=== PATIENT | male | born 1935 | race Caucasian/White ===

== ENCOUNTER 2017-06-14 16:54 | Emergency (ER) | payer OTHER, MEDICARE, BC ==
[~2017-06-14] VITALS: Ht 162.6 cm; Wt 60.0 kg
[~2017-06-14 16:54] MED LIST: ASPIRIN325 MG PO; BENADRYL 50MG C50 MG PO; CHILD ASA LS81 MG PO; CIPRO XR500 M2 PO; CO Q-10200 M1 PO; COUMADIN3 MG PO; DIGOXIN0.125 MG PO; FLEXERIL PO; METO50TA52 PO; MEVACOR20 MG PO; NITROSTAT0.4 MG SL; OCUVITE EYE HEALTH F PO; PERCOCET 10/31 COMBO PO; PRILOSEC40 MG PO; ZESTRIL10 MG PO; [UNRECOGNIZED DRUG - OTHER] PO
[2017-06-14 17:48] LABS: HEMATOCRIT 41.1 % (39.0-50.0); HEMOGLOBIN 13.3 g/dl (14.0-18.0); IMMATURE GRANULOCYTES 0.5 % (0.0-1.0); MEAN CELL VOLUME 96.7 fL CALC (80.0-100.0); MEAN CORPUSCULAR HGB 31.3 pG CALC (26.0-32.0); MEAN CORPUSCULAR HGB CONC 32.4 g/L CALC (32.0-36.0); NEUT# 6.96 thou/uL (1.82-7.42); RED BLOOD COUNT 4.25 mill/uL (4.70-6.10); RED CELL DISTRI WIDTH 13.2 % (11.5-15.5)
[2017-06-14 18:09] LABS: ALBUMIN 3.8 g/dL (3.2-5.0); ALKALINE PHOSPHATASE 74 u/l (38-126); ANION GAP 15 (6-22 (CALC)); BILIRUBIN, TOTAL 0.7 mg/dL (0.0-1.4); BUN 34 mg/dL (8-23); BUN/CREATININE RATIO 39 (12-20 (CALC)); CALCIUM 8.7 mg/dL (8.4-10.2); CARBON DIOXIDE 27 mmol/l (22-30); CHLORIDE 105 mmol/l (95-108); CREATININE 0.9 mg/dL (0.7-1.3); GFR > 60 ML/MIN (>=60 (CALC)); GFR FOR AFR.AMER. > 60 ML/MIN (>=60 (CALC)); GLUCOSE 117 mg/dL (82-115); INTERNATIONAL NORMALIZED RATIO 2.3 RATIO (0.7-1.3); POTASSIUM 3.8 mmol/l (3.5-5.1); SGOT/AST 62 u/l (19-48); SGPT/ALT 39 u/l (11-66); SODIUM 144 mmol/l (137-146); TOTAL PROTEIN 6.8 g/dL (6.3-8.2)
[2017-06-14 18:27] LABS: MYOGLOBIN 543 ng/mL (0 - 121)
[2017-06-14] MEDS ORDERED: METOPROL TAR25 MG PO (19:37)
[2017-06-14] MEDS ORDERED: DONEPEZIL5 MG PO (19:39)
[2017-06-14] MEDS ORDERED: LOSARTAN POT50 MG PO (19:40)
[2017-06-14] MEDS ORDERED: AMLODIPINE5 MG PO (19:40)
[2017-06-14 19:45] VITALS: BP 149/74
[2017-06-14 19:45] LABS: URINE BILIRUBIN - DIPSTICK NEGATIVE (NEGATIVE); URINE BLOOD DIPSTICK NEGATIVE (NEGATIVE); URINE COLOR YELLOW; URINE GLUCOSE - DIPSTICK NEGATIVE (NEGATIVE); URINE KETONE NEGATIVE (NEGATIVE); URINE LEUK ESTERASE NEGATIVE (NEGATIVE); URINE NITRITE - DIPSTICK NEGATIVE (Negative); URINE PROTEIN - DIPSTICK NEGATIVE (NEG-TRACE); URINE UROBILINOGEN - DIPSTICK 0.2 E.U./dL (0.2)
[2017-06-14] MEDS ORDERED: EC-NAPROSYN500 MG PO (19:49)
[2017-06-14 20:23] LABS: URINE CLARITY CLEAR
== END 2017-06-14 20:20 | disposition left against medical advice (07) | DRG 552 ==
LOC: ED 16:54
PROVIDERS: Emergency Medicine
DX: S16.1XXA Strain of muscle, fascia and tendon at neck level, initial encounter (principal); S20.219A Contusion of unspecified front wall of thorax, initial encounter; S00.93XA Contusion of unspecified part of head, initial encounter; S80.02XA Contusion of left knee, initial encounter; S80.01XA Contusion of right knee, initial encounter; I10 Essential (primary) hypertension; M25.561 Pain in right knee; V49.49XA Driver injured in collision with other motor vehicles in traffic accident, initial encounter; Y92.411 Interstate highway as the place of occurrence of the external cause; W22.11XA Striking against or struck by driver side automobile airbag, initial encounter; Y93.89 Activity, other specified; M25.562 Pain in left knee; R07.9 Chest pain, unspecified; R06.02 Shortness of breath; I25.10 Atherosclerotic heart disease of native coronary artery without angina pectoris; Z95.5 Presence of coronary angioplasty implant and graft; Z91.19 Patient's noncompliance with other medical treatment and regimen

== ENCOUNTER 2020-02-24 08:53 | Inpatient (IN) | payer MEDICARE, BC ==
[~2020-02-24] VITALS: Ht 162.6 cm; Wt 68.0 kg
[~2020-02-24 08:53] MED LIST changes: +AMLODIPINE5 MG PO; +DONEPEZIL5 MG PO; +EC-NAPROSYN500 MG PO; +LOSARTAN POT50 MG PO; +METOPROL TAR25 MG PO
[2020-02-24] MEDS ORDERED: DIGOXIN0.125 MG PO (09:15)
[2020-02-24] MEDS ORDERED: LOVASTATIN20 M1 PO (09:19)
[2020-02-24] MEDS ORDERED: NAMENDA10 MG PO (09:23)
[2020-02-24 09:34] LABS: HEMATOCRIT 43.8 % (39.0-50.0); HEMOGLOBIN 13.7 g/dl (14.0-18.0); IMMATURE GRANULOCYTES 3.2 % (0.0-5.0); MEAN CORPUSCULAR HGB 28.2 pG CALC (26.0-32.0); MEAN CORPUSCULAR HGB CONC 31.3 g/dL CAL (32.0-36.0); PLATELET COUNT 123 thou/uL (130-400); RED BLOOD COUNT 4.86 mill/uL (4.70-6.10); RED CELL DISTRI WIDTH 15.9 % (11.5-15.5)
[2020-02-24] MEDS ORDERED: GNP OMEPRAZOLE20 MG PO (09:34)
[2020-02-24] MEDS ORDERED: WARFARIN2 MG PO (09:35)
[2020-02-24] MEDS ORDERED: WARFARIN4 MG PO (09:36)
[2020-02-24 09:50] LABS: ALBUMIN 3.9 g/dL (3.2-5.0); ALKALINE PHOSPHATASE 88 u/l (38-126); BUN 28 mg/dL (8-23); BUN/CREATININE RATIO 21 (12-20 (CALC)); CARBON DIOXIDE 27 mmol/l (22-30); CHLORIDE 100 mmol/l (95-108); CPK 176 u/l (52-200); CREATININE 1.3 mg/dL (0.7-1.3); GFR 53 ML/MIN (>=60 (CALC)); GFR FOR AFR.AMER. > 60 ML/MIN (>=60 (CALC)); POTASSIUM 3.6 mmol/l (3.5-5.1); SGOT/AST 31 u/l (19-48); TOTAL PROTEIN 7.3 g/dL (6.3-8.2)
[2020-02-24 10:00] LABS: ANION GAP 13 (6-22 (CALC)); BILIRUBIN, TOTAL 2.1 mg/dL (0.0-1.4); SODIUM 136 mmol/l (137-146)
[2020-02-24 10:09] LABS: MEAN CELL VOLUME 90.1 fL CALC (80.0-100.0)
[2020-02-24 10:10] LABS: MANUAL DIFFERENTIAL YES
[2020-02-24 10:21] LABS: BAND 12 % (0-8); PLATELET ESTIMATE SLIGHT DECREASE
[2020-02-24 11:43] LABS: URINE BILIRUBIN - DIPSTICK NEGATIVE (NEGATIVE); URINE BLOOD DIPSTICK LARGE (NEGATIVE); URINE COLOR YELLOW; URINE GLUCOSE - DIPSTICK NEGATIVE (NEGATIVE); URINE KETONE NEGATIVE (NEGATIVE); URINE LEUK ESTERASE TRACE (NEGATIVE); URINE NITRITE - DIPSTICK NEGATIVE (Negative); URINE PH 5.5 (4.5-8.0); URINE PROTEIN - DIPSTICK 30 mg/dL (NEG-TRACE); URINE SPECIFIC GRAVITY >=1.030
[2020-02-24 11:48] LABS: URINE BACTERIA MANY hpf
[2020-02-24 12:13] LABS: INTERNATIONAL NORMALIZED RATIO 1.6 RATIO (0.7-1.3); PROTHROMBIN TIME 15.9 SECONDS (9.0-12.5)
[2020-02-24 14:46] VITALS: BP 117/60
[2020-02-24 16:16] LABS: C-REACTIVE PROTEIN 26.9 mg/dL (0-0.9)
[2020-02-24 18:35] VITALS: BP 115/72
[2020-02-24 18:52] VITALS: BP 116/77
[2020-02-25] VITALS: BP 142/87
[2020-02-25 04:10] VITALS: BP 125/80
[2020-02-25 05:34] LABS: HEMATOCRIT 40.5 % (39.0-50.0); HEMOGLOBIN 12.7 g/dl (14.0-18.0); MEAN CELL VOLUME 90.8 fL CALC (80.0-100.0); MEAN CORPUSCULAR HGB 28.5 pG CALC (26.0-32.0); MEAN CORPUSCULAR HGB CONC 31.4 g/dL CAL (32.0-36.0); NEUT# 17.33 thou/uL (1.82-7.42); RED BLOOD COUNT 4.46 mill/uL (4.70-6.10); RED CELL DISTRI WIDTH 16.8 % (11.5-15.5)
[2020-02-25 05:45] LABS: BILIRUBIN, TOTAL 1.5 mg/dL (0.0-1.4); CREATININE 1.6 mg/dL (0.7-1.3)
[2020-02-25 05:54] LABS: ALBUMIN 2.8 g/dL (3.2-5.0); TOTAL PROTEIN 5.6 g/dL (6.3-8.2)
[2020-02-25 08:20] VITALS: BP 136/82
[2020-02-25 10:55] VITALS: BP 99/66
[2020-02-25 14:18] LABS: INTERNATIONAL NORMALIZED RATIO 1.6 RATIO (0.7-1.3); PROTHROMBIN TIME 15.3 SECONDS (9.0-12.5)
[2020-02-25 14:55] VITALS: BP 96/62
[2020-02-25 19:37] VITALS: BP 118/73
[2020-02-26] VITALS (7 sets, daily range): BP systolic 117–128; BP diastolic 72–89
[2020-02-26 05:30] LABS: HEMATOCRIT 42.6 % (39.0-50.0); HEMOGLOBIN 12.9 g/dl (14.0-18.0); MEAN CELL VOLUME 92.6 fL CALC (80.0-100.0); MEAN CORPUSCULAR HGB CONC 30.3 g/dL CAL (32.0-36.0); RED BLOOD COUNT 4.6 mill/uL (4.70-6.10); RED CELL DISTRI WIDTH 16.4 % (11.5-15.5)
[2020-02-26 05:49] LABS: CREATININE 1.5 mg/dL (0.7-1.3); PROTHROMBIN TIME 19.3 SECONDS (9.0-12.5)
[2020-02-26 06:00] LABS: POTASSIUM 3.1 mmol/l (3.5-5.1)
[2020-02-27 03:47] VITALS: BP 129/83
[2020-02-27 05:50] LABS: ANION GAP 9 (6-22 (CALC)); BUN 21 mg/dL (8-23); BUN/CREATININE RATIO 18 (12-20 (CALC)); CARBON DIOXIDE 26 mmol/l (22-30); CHLORIDE 110 mmol/l (95-108); CREATININE 1.1 mg/dL (0.7-1.3); GFR > 60 ML/MIN (>=60 (CALC)); GFR FOR AFR.AMER. > 60 ML/MIN (>=60 (CALC)); MAGNESIUM 1.7 mg/dL (1.6-2.3); SODIUM 142 mmol/l (137-146)
[2020-02-27 05:58] LABS: INTERNATIONAL NORMALIZED RATIO 2.4 RATIO (0.7-1.3); PROTHROMBIN TIME 23.3 SECONDS (9.0-12.5)
[2020-02-27 06:05] LABS: HEMATOCRIT 39.8 % (39.0-50.0); HEMOGLOBIN 11.9 g/dl (14.0-18.0); MEAN CELL VOLUME 93.2 fL CALC (80.0-100.0); MEAN CORPUSCULAR HGB 27.9 pG CALC (26.0-32.0); MEAN CORPUSCULAR HGB CONC 29.9 g/dL CAL (32.0-36.0); RED BLOOD COUNT 4.27 mill/uL (4.70-6.10); RED CELL DISTRI WIDTH 16.5 % (11.5-15.5)
[2020-02-27 07:09] VITALS: BP 141/78
[2020-02-27 16:15] VITALS: BP 137/91
[2020-02-27 18:53] VITALS: BP 144/85
[2020-02-28 04:15] VITALS: BP 140/87
[2020-02-28 05:30] LABS: HEMATOCRIT 36.7 % (39.0-50.0); HEMOGLOBIN 11.4 g/dl (14.0-18.0); MEAN CELL VOLUME 90.2 fL CALC (80.0-100.0); MEAN CORPUSCULAR HGB CONC 31.1 g/dL CAL (32.0-36.0); RED BLOOD COUNT 4.07 mill/uL (4.70-6.10)
[2020-02-28 05:34] LABS: ANION GAP 7 (6-22 (CALC)); BUN 16 mg/dL (8-23); BUN/CREATININE RATIO 17 (12-20 (CALC)); CARBON DIOXIDE 27 mmol/l (22-30); CHLORIDE 108 mmol/l (95-108); GFR > 60 ML/MIN (>=60 (CALC)); GFR FOR AFR.AMER. > 60 ML/MIN (>=60 (CALC)); POTASSIUM 3.1 mmol/l (3.5-5.1); SODIUM 139 mmol/l (137-146)
[2020-02-28 06:41] LABS: INTERNATIONAL NORMALIZED RATIO 3.7 RATIO (0.7-1.3); PROTHROMBIN TIME 34.6 SECONDS (9.0-12.5)
[2020-02-28 08:00] VITALS: BP 140/87
[2020-02-28 14:57] VITALS: BP 131/88
[2020-02-28 19:00] VITALS: BP 123/81
[2020-02-29 04:00] VITALS: BP 145/97
[2020-02-29 05:19] LABS: HEMATOCRIT 39.7 % (39.0-50.0); HEMOGLOBIN 12.4 g/dl (14.0-18.0); MEAN CELL VOLUME 90.4 fL CALC (80.0-100.0); MEAN CORPUSCULAR HGB 28.2 pG CALC (26.0-32.0); MEAN CORPUSCULAR HGB CONC 31.2 g/dL CAL (32.0-36.0); RED BLOOD COUNT 4.39 mill/uL (4.70-6.10); RED CELL DISTRI WIDTH 15.9 % (11.5-15.5)
[2020-02-29 05:33] LABS: INTERNATIONAL NORMALIZED RATIO 3.6 RATIO (0.7-1.3)
[2020-02-29 05:53] LABS: ANION GAP 8 (6-22 (CALC)); BUN 13 mg/dL (8-23); BUN/CREATININE RATIO 15 (12-20 (CALC)); CARBON DIOXIDE 29 mmol/l (22-30); CHLORIDE 105 mmol/l (95-108); CREATININE 0.9 mg/dL (0.7-1.3); GFR > 60 ML/MIN (>=60 (CALC)); GFR FOR AFR.AMER. > 60 ML/MIN (>=60 (CALC)); POTASSIUM 3.5 mmol/l (3.5-5.1); SODIUM 138 mmol/l (137-146)
[2020-02-29 08:20] VITALS: BP 136/93
[2020-02-29 09:41] VITALS: BP 136/93
[2020-02-29] MEDS ORDERED: MACROBID100 MG PO (10:43)
[2020-02-29] MEDS ORDERED: Levaquin PO (11:13)
== END 2020-02-29 14:25 | DRG 689 ==
LOC: ED 08:53 → ED-I 12:10 → ED 12:17 → ED-I 12:18 → MS2 12:18
PROVIDERS: Internal Medicine; Nurse Practitioner; Student in an Organized Health Care Education/Training Program; ADMIT Internal Medicine; ATTEND Internal Medicine
DX: N30.91 Cystitis, unspecified with hematuria (principal); J18.9 Pneumonia, unspecified organism; Z16.12 Extended spectrum beta lactamase (ESBL) resistance; R19.7 Diarrhea, unspecified; N28.9 Disorder of kidney and ureter, unspecified; E87.6 Hypokalemia; I48.91 Unspecified atrial fibrillation; N40.0 Benign prostatic hyperplasia without lower urinary tract symptoms; I10 Essential (primary) hypertension; F03.90 Unspecified dementia, unspecified severity, without behavioral disturbance, psychotic disturbance, mood disturbance, and anxiety; B96.20 Unspecified Escherichia coli [E. coli] as the cause of diseases classified elsewhere; Z95.5 Presence of coronary angioplasty implant and graft; Z79.01 Long term (current) use of anticoagulants; Z91.81 History of falling; Z20.828 Contact with and (suspected) exposure to other viral communicable diseases
CPT/HCPCS: Q9967

== ENCOUNTER 2021-03-28 18:36 | Emergency (ER) | payer MEDICARE, BC ==
[~2021-03-28] VITALS: Ht 162.6 cm; Wt 77.0 kg
[~2021-03-28 18:36] MED LIST changes: +GNP OMEPRAZOLE20 MG PO; +LOVASTATIN20 M1 PO; +Levaquin PO; +MACROBID100 MG PO; +NAMENDA10 MG PO; +WARFARIN2 MG PO; +WARFARIN4 MG PO
[2021-03-28] MEDS ORDERED: WARFARIN3 MG PO (18:57)
[2021-03-28 19:03] LABS: IMMATURE GRANULOCYTES 0.4 % (0.0-5.0); MEAN CELL VOLUME 91.8 fL CALC (80.0-100.0); MEAN CORPUSCULAR HGB 28.9 pG CALC (26.0-32.0); MEAN CORPUSCULAR HGB CONC 31.5 g/dL CAL (32.0-36.0); NEUT# 4.75 thou/uL (1.82-7.42); RED BLOOD COUNT 5.12 mill/uL (4.70-6.10); RED CELL DISTRI WIDTH 15.2 % (11.5-15.5)
[2021-03-28 19:08] LABS: HEMOGLOBIN 14.8 g/dl (14.0-18.0)
[2021-03-28 19:34] LABS: ALKALINE PHOSPHATASE 102 u/l (38-126); ANION GAP 12 (6-22 (CALC)); BUN 22 mg/dL (8-23); BUN/CREATININE RATIO 17 (12-20 (CALC)); CARBON DIOXIDE 31 mmol/l (22-30); CHLORIDE 100 mmol/l (95-108); CREATININE 1.3 mg/dL (0.7-1.3); GFR 53 ML/MIN (>=60 (CALC)); GFR FOR AFR.AMER. > 60 ML/MIN (>=60 (CALC)); POTASSIUM 4.1 mmol/l (3.5-5.1); SGOT/AST 30 u/l (19-48); SODIUM 138 mmol/l (137-146)
[2021-03-28 19:41] LABS: ALBUMIN 4.2 g/dL (3.2-5.0); BILIRUBIN, TOTAL 0.6 mg/dL (0.0-1.4); TOTAL PROTEIN 7.6 g/dL (6.3-8.2)
[2021-03-28] MEDS ORDERED: CEPHALEXIN500 MG PO (19:53)
[2021-03-28 22:00] VITALS: BP 144/80
== END 2021-03-28 22:00 | disposition home or self-care (01) ==
LOC: ED 18:36
PROVIDERS: Family Medicine
DX: U07.1 COVID-19 (principal); I10 Essential (primary) hypertension; I48.91 Unspecified atrial fibrillation; F03.90 Unspecified dementia, unspecified severity, without behavioral disturbance, psychotic disturbance, mood disturbance, and anxiety; Z95.5 Presence of coronary angioplasty implant and graft

== ENCOUNTER 2021-03-31 14:39 | Emergency (ER) | payer MEDICARE, BC ==
[~2021-03-31] VITALS: Ht 162.6 cm; Wt 68.0 kg
[~2021-03-31 14:39] MED LIST changes: +CEPHALEXIN500 MG PO; +WARFARIN3 MG PO
[2021-03-31 16:10] LABS: HEMATOCRIT 46.5 % (39.0-50.0); HEMOGLOBIN 14.2 g/dl (14.0-18.0); IMMATURE GRANULOCYTES 0.3 % (0.0-5.0); MEAN CELL VOLUME 94.3 fL CALC (80.0-100.0); MEAN CORPUSCULAR HGB 28.8 pG CALC (26.0-32.0); MEAN CORPUSCULAR HGB CONC 30.5 g/dL CAL (32.0-36.0); NEUT# 2.85 thou/uL (1.82-7.42); RED BLOOD COUNT 4.93 mill/uL (4.70-6.10); RED CELL DISTRI WIDTH 15.4 % (11.5-15.5)
[2021-03-31 17:13] VITALS: BP 178/89
== END 2021-03-31 17:24 ==
LOC: ED 14:39
PROVIDERS: Emergency Medicine
DX: R91.8 Other nonspecific abnormal finding of lung field (principal); I71.9 Aortic aneurysm of unspecified site, without rupture; I10 Essential (primary) hypertension; I48.91 Unspecified atrial fibrillation; F03.90 Unspecified dementia, unspecified severity, without behavioral disturbance, psychotic disturbance, mood disturbance, and anxiety; Z95.5 Presence of coronary angioplasty implant and graft; Z86.16 Personal history of COVID-19
CPT/HCPCS: Q9967

== ENCOUNTER 2021-04-05 05:10 | Observation (INO) | payer MEDICARE, BC ==
[~2021-04-05] VITALS: Ht 167.6 cm; Wt 59.0 kg
[2021-04-05 05:59] LABS: HEMATOCRIT 44.8 % (39.0-50.0); HEMOGLOBIN 14.2 g/dl (14.0-18.0); IMMATURE GRANULOCYTES 0.3 % (0.0-5.0); MEAN CELL VOLUME 91.1 fL CALC (80.0-100.0); MEAN CORPUSCULAR HGB 28.9 pG CALC (26.0-32.0); MEAN CORPUSCULAR HGB CONC 31.7 g/dL CAL (32.0-36.0); NEUT# 7.52 thou/uL (1.82-7.42); RED BLOOD COUNT 4.92 mill/uL (4.70-6.10); RED CELL DISTRI WIDTH 15.4 % (11.5-15.5)
[2021-04-05 06:00] LABS: URINE BILIRUBIN - DIPSTICK NEGATIVE (NEGATIVE); URINE BLOOD DIPSTICK MODERATE (NEGATIVE); URINE COLOR YELLOW; URINE GLUCOSE - DIPSTICK NEGATIVE (NEGATIVE); URINE KETONE TRACE mg/dL (NEGATIVE); URINE LEUK ESTERASE NEGATIVE (NEGATIVE); URINE PROTEIN - DIPSTICK 30 mg/dL (NEG-TRACE); URINE SPECIFIC GRAVITY 1.015; URINE UROBILINOGEN - DIPSTICK 0.2 E.U./dL (0.2)
[2021-04-05 06:09] LABS: ALBUMIN 3.6 g/dL (3.2-5.0); ALKALINE PHOSPHATASE 66 u/l (38-126); AMYLASE 89 u/l (30-110); ANION GAP 9 (6-22 (CALC)); BILIRUBIN, TOTAL 0.7 mg/dL (0.0-1.4); BUN 34 mg/dL (8-23); BUN/CREATININE RATIO 29 (12-20 (CALC)); CARBON DIOXIDE 34 mmol/l (22-30); CHLORIDE 99 mmol/l (95-108); CREATININE 1.2 mg/dL (0.7-1.3); GFR 58 ML/MIN (>=60 (CALC)); GFR FOR AFR.AMER. > 60 ML/MIN (>=60 (CALC)); LIPASE 282 u/l (23-300); SODIUM 137 mmol/l (137-146); TOTAL PROTEIN 7.3 g/dL (6.3-8.2)
[2021-04-05 06:20] LABS: SGOT/AST 80 u/l (19-48)
[2021-04-05 06:22] LABS: URINE NITRITE - DIPSTICK NEGATIVE (Negative)
[2021-04-05 06:29] LABS: ACT PARTIAL THROMBO TIME 27.9 SECONDS (20.0-32.5)
[2021-04-05 06:37] LABS: URINE SQUAMOUS EPITHELIAL CELL FEW EPI/hpf (0-FEW); URINE WBC 0-2 WBC/hpf (0-5)
[2021-04-05 06:40] LABS: INTERNATIONAL NORMALIZED RATIO 1.1 RATIO (0.7-1.3); PROTHROMBIN TIME 11.6 SECONDS (9.0-12.5)
--- NOTE | 2021-04-05 07:05 | NUR ---
REPORT RECEIVED FROM JENY DUGGAN.
--- NOTE | 2021-04-05 07:10 | NUR ---
REPORT RECEIVED FROM JENY DUGGAN
[2021-04-05] MEDS ORDERED: METOPROLOL SUCC50 MG PO (07:29)
--- NOTE | 2021-04-05 07:36 | NUR ---
Reassessment of patient completed. No distress noted. NURSING BEDSIDE CURRENTLY
--- NOTE | 2021-04-05 09:00 | NUR ---
PT MEDICATED, VITALS UPDATED, NO DISTRESS NOTED. BED IN LOW POSITION.
--- NOTE | 2021-04-05 11:30 | NUR ---
PT REPOSITIONED IN BED, LINEN CHANGED, NEW BRIEF IN PLACE.
[2021-04-05 13:00] VITALS: BP 112/80
--- NOTE | 2021-04-05 13:00 | NUR ---
PT ATE 25% OF LUNCH, NEEDS ASSISTANCE WITH FEEDING. NO CHANGES.
--- NOTE | 2021-04-05 13:51 | NUR ---
THIS NURSE RECEIVED REPORT FROM RN NOVEMBER AT THIS TIME. PATIENT IS LAYING IN BED WITH EYES CLOTHES AND RESPIRATION EASY AND UNLABORED AT THIS TIME. PATIENT IS ON O2 AT 2 LITERS AND SPO2 IS 94%. SIDERAILS ARE UP CALL LIGHT WITHIN REACH. TELE MONITOR ON AND BEING MONITORED BY ED.
--- NOTE | 2021-04-05 15:45 | NUR ---
PATIENT LAYING IN BED AT THIS TIME. PATIENT DENEIS ANY PAIN LUNG SOUNDS IN UPPER MILES ARE CLEAR AND DIMINISHED IN LOWER MILES. VITAL SIGNS TAKEN AT THIS TIME (SEE INTERVENTIONS). 02 ON AT 2 LITERS AND SPO2 IS CURRENTLY 94% AT THIS TIME. SITTER IS AT BEDSIDE CURRENTLY SIDERRAILS ARE UP CALL LIGHT NEAR.
--- NOTE | 2021-04-05 16:26 | NUR ---
PATIENT INCONTINENT OF LARGE AMOUNT OF URINE AT THIS TIME. PATIENT NICOLE-AREA CLEANSED WITH SOAP AND WATER AT THIS TIME AND DRIED.
[2021-04-05 19:30] VITALS: BP 139/67
--- NOTE | 2021-04-05 20:10 | NUR ---
OBSERVED PT IN THE CAMERA OUT OF HIS BED. UPON ENTERING THE ROOM, PT WAS FOUND STANDING IN A PUDDLE OF URINE NEXT TO THE BED. PT WAS ASSISTED BACK TO THE BED AND CLEANED OF INCONTINENT URINE. NEW GOWN PLACED AND BED ALARM PLACED ON. BED ALARM AND CAMERA IN PLACE ON.
--- NOTE | 2021-04-05 21:13 | NUR ---
PT MEDICATED ORDERS PROVIDE AND ASSESSMENT COMPLETED AT THIS TIME. PT WAS ABLE TO SWOLLOW PILLS WHOLE W/OUT DIFFICULTY. CAMERA MONITOR IS ON AND BED ALARM IS ON ALSO.
[2021-04-05 23:10] VITALS: BP 133/74
--- NOTE | 2021-04-06 03:00 | NUR ---
PT SOUNDED BED ALARM. UPON ENTERING THE ROOM HE WAS FOUND ATTEMPTING TO GET OUT OF THE BED. PT WAS ASSISTED TO BSC, BED WAS WET WITH URINE. BEDDING AND GOWN CHANGED AND BRIEF APPLIED AT THIS TIME. BED ALARM ON, CALL LIGHT AT SIDE, MONITOR IN PLACE AND PT LEFT IN BED WITH LIGHTS LOW.
[2021-04-06 04:00] VITALS: BP 117/78
[2021-04-06 06:45] LABS: HEMATOCRIT 44.6 % (39.0-50.0); HEMOGLOBIN 14.1 g/dl (14.0-18.0); MEAN CELL VOLUME 91.4 fL CALC (80.0-100.0); MEAN CORPUSCULAR HGB 28.9 pG CALC (26.0-32.0); MEAN CORPUSCULAR HGB CONC 31.6 g/dL CAL (32.0-36.0); RED BLOOD COUNT 4.88 mill/uL (4.70-6.10); RED CELL DISTRI WIDTH 15.4 % (11.5-15.5)
--- NOTE | 2021-04-06 07:01 | NUR ---
REPORT FROM LILIANE FERMIN. ASSUMED PT CARE.
[2021-04-06 07:04] LABS: INTERNATIONAL NORMALIZED RATIO 1.2 RATIO (0.7-1.3); PROTHROMBIN TIME 12.6 SECONDS (9.0-12.5)
[2021-04-06 07:06] LABS: ANION GAP 11 (6-22 (CALC)); BUN 21 mg/dL (8-23); BUN/CREATININE RATIO 28 (12-20 (CALC)); CARBON DIOXIDE 28 mmol/l (22-30); CHLORIDE 104 mmol/l (95-108); CREATININE 0.7 mg/dL (0.7-1.3); GFR > 60 ML/MIN (>=60 (CALC)); GFR FOR AFR.AMER. > 60 ML/MIN (>=60 (CALC)); POTASSIUM 4.1 mmol/l (3.5-5.1); SODIUM 138 mmol/l (137-146)
[2021-04-06 08:05] VITALS: BP 126/81
[2021-04-06 10:30] VITALS: BP 114/67
--- NOTE | 2021-04-06 11:41 | NUR ---
PHYSICIAN AT BEDSIDE TO DISCUSS POC.
--- NOTE | 2021-04-06 14:27 | NUR ---
PT note Patient is seen for functional training, He is pleasantly confused but does follow instructions. He is able to get OOB to stand with vitals stable and CGA of 2. He is able to ambualte in room x 40 feet with FWW and vitals stable with short stride length but no LOB. Am Pac score for this patient is 14 indicating he would do well in ECF due to his confusion, incontinence and gait needs. Our plan is to continue to progress his function
[2021-04-06 15:07] VITALS: BP 117/68
--- NOTE | 2021-04-06 15:11 | NUR ---
PT INCONTINENT OF URINE. PERICARE PROVIDED. PT REPOSITIONED IN BED. ON RA. NO APPARENT DISTRESS NOTED. ALERT TO SELF. NO CURRENT WANTS OR NEEDS. CALL LIGHT WITHIN REACH. BED ALARM FOR SAFETY. WILL CONTINUE TO MONITOR.
[2021-04-06 19:00] VITALS: BP 121/72
--- NOTE | 2021-04-06 20:10 | NUR ---
PT SET BED ALARM OFF ATTEMPTING TO USE RESTROOM. PT ASSISTED TO RESTROOM AND BACK TO THE BED.
--- NOTE | 2021-04-06 21:00 | NUR ---
PT MEDICATED ORDERS PROVIDE AND ASSESSMENT COMPLETED AT THIS TIME. I ASSISTED PT TO FIND SOMETHING ON TV TO WATCH AND TURNED VOL UP LOUD FOR [place]. ASSISTED DRINKING FLUIDS AT THIS TIME. BED ALARM IS ON WITH MONITOR FOR OBS.
--- NOTE | 2021-04-06 23:00 | NUR ---
PT SOUNDED BED ALARM, HE WAS ATTEMPTING TO GET OUT OF THE BED TO USE RESTROOM. PT WAS ASSISTED TO THE RESTROOM AND BACK TO THE BED. PT IS VERY UNSTEADY ON HIS FEET. BED ALARM ON AND MONITOR FOR VISUAL OBSERVATIONS.
[2021-04-07] VITALS: BP 116/81
--- NOTE | 2021-04-07 03:02 | NUR ---
PT SOUNDED THE BED ALARM. PT ASKING TO USE RESTROOM, ASSISTED USING WALKER TO RESTROOM AND BACK TO THE BED. PT OXYGEN SAT AT 95% ON RA AMBULATORY. NO DISTRESS NOTED. NO SOB NOTED. OUTPATIENT PSYCHIATRIST LEFT WITH PT AT THIS TIME. MONITOR IN PLACE FOR OBS FOR SAFETY.
[2021-04-07 04:00] VITALS: BP 132/84
[2021-04-07 06:13] LABS: HEMATOCRIT 44.9 % (39.0-50.0); HEMOGLOBIN 14.1 g/dl (14.0-18.0); IMMATURE GRANULOCYTES 0.2 % (0.0-5.0); MEAN CORPUSCULAR HGB 28.9 pG CALC (26.0-32.0); MEAN CORPUSCULAR HGB CONC 31.4 g/dL CAL (32.0-36.0); NEUT# 2.89 thou/uL (1.82-7.42); RED BLOOD COUNT 4.88 mill/uL (4.70-6.10); RED CELL DISTRI WIDTH 15.2 % (11.5-15.5)
[2021-04-07 07:13] LABS: ALBUMIN 3.1 g/dL (3.2-5.0); ALKALINE PHOSPHATASE 61 u/l (38-126); ANION GAP 11 (6-22 (CALC)); BILIRUBIN, TOTAL 0.7 mg/dL (0.0-1.4); BUN 20 mg/dL (8-23); BUN/CREATININE RATIO 23 (12-20 (CALC)); C-REACTIVE PROTEIN 4.8 mg/dL (0-0.9); CARBON DIOXIDE 29 mmol/l (22-30); CHLORIDE 103 mmol/l (95-108); CREATININE 0.9 mg/dL (0.7-1.3); GFR > 60 ML/MIN (>=60 (CALC)); GFR FOR AFR.AMER. > 60 ML/MIN (>=60 (CALC)); POTASSIUM 4.2 mmol/l (3.5-5.1); SGOT/AST 55 u/l (19-48); SODIUM 139 mmol/l (137-146); TOTAL PROTEIN 6.3 g/dL (6.3-8.2)
--- NOTE | 2021-04-07 07:16 | NUR ---
REPORT FROM LILIANE FERMIN. ASSUMED PT CARE.
[2021-04-07 08:10] VITALS: BP 124/74
--- NOTE | 2021-04-07 11:14 | NUR ---
PHYSICIAN AT BEDSIDE TO DISCUSS POC.
[2021-04-07 11:27] LABS: INTERNATIONAL NORMALIZED RATIO 1.2 RATIO (0.7-1.3); PROTHROMBIN TIME 12.8 SECONDS (9.0-12.5)
[2021-04-07 11:40] VITALS: BP 110/60
--- NOTE | 2021-04-07 14:16 | NUR ---
STANDY BY ASSIST PT INTO BED. PT AMBULATES WITH STEADY GAIT. NO APPARENT DISTRESS NOTED. CALL LIGHT WITHIN REACH. WILL CONTINUE TO MONITOR.
[2021-04-07] MEDS ORDERED: Levaquin PO (14:18)
--- NOTE | 2021-04-07 16:59 | NUR ---
IV site discontinued, cath intact. No edema , no redness, voices no discomfort.
--- NOTE | 2021-04-07 17:01 | NUR ---
Discharge instructions given. Discharged in stable condition via Wheelchair to [facility] with transport. iv site discontinued and telemetry removed.
--- NOTE | 2021-04-07 17:09 | NUR ---
NURSE TO NURSE REPORT TO ALAN AT [facility].
== END 2021-04-07 16:59 ==
LOC: ED 05:10 → ED-I 06:37 → ED 06:56 → ED-I 06:57 → MS2 06:57
PROVIDERS: Nurse Practitioner; ADMIT Hospitalist; ATTEND Hospitalist
DX: U07.1 COVID-19 (principal); J12.82 Pneumonia due to coronavirus disease 2019; R19.5 Other fecal abnormalities; I10 Essential (primary) hypertension; I48.91 Unspecified atrial fibrillation; F03.90 Unspecified dementia, unspecified severity, without behavioral disturbance, psychotic disturbance, mood disturbance, and anxiety; I71.2 Thoracic aortic aneurysm, without rupture; Z95.5 Presence of coronary angioplasty implant and graft; Z79.01 Long term (current) use of anticoagulants
CPT/HCPCS: J0131; Q9967

== ENCOUNTER 2022-01-13 12:42 | Inpatient (IN) | payer MEDICARE, BC ==
[~2022-01-13] VITALS: Ht 167.6 cm; Wt 71.0 kg
[2022-01-13] VITALS (14 sets, daily range): BP systolic 112–151; BP diastolic 46–100
[~2022-01-13 12:42] MED LIST changes: +METOPROLOL SUCC50 MG PO
[2022-01-13 13:18] LABS: HEMATOCRIT 45.9 % (39.0-50.0); HEMOGLOBIN 14.3 g/dl (14.0-18.0); IMMATURE GRANULOCYTES 0.3 % (0.0-5.0); MEAN CELL VOLUME 91.4 fL CALC (80.0-100.0); MEAN CORPUSCULAR HGB 28.5 pG CALC (26.0-32.0); MEAN CORPUSCULAR HGB CONC 31.2 g/dL CAL (32.0-36.0); NEUT# 17.89 thou/uL (1.82-7.42); RED BLOOD COUNT 5.02 mill/uL (4.70-6.10); RED CELL DISTRI WIDTH 15.5 % (11.5-15.5)
[2022-01-13 13:35] LABS: ANION GAP 14 (6-22 (CALC)); BILIRUBIN, TOTAL 0.8 mg/dL (0.0-1.4); BUN 18 mg/dL (8-23); BUN/CREATININE RATIO 17 (12-20 (CALC)); CARBON DIOXIDE 27 mmol/l (22-30); CHLORIDE 103 mmol/l (95-108); GFR FOR AFR.AMER. > 60 ML/MIN (>=60 (CALC)); GFR OTHER RACES > 60 ML/MIN (>=60 (CALC)); LIPASE 122 u/l (23-300); POTASSIUM 4.2 mmol/l (3.5-5.1); SGOT/AST 36 u/l (19-48); SODIUM 140 mmol/l (137-146)
[2022-01-13 13:36] LABS: ALBUMIN 4.1 g/dL (3.2-5.0); ALKALINE PHOSPHATASE 105 u/l (38-126)
[2022-01-13 13:45] LABS: ACT PARTIAL THROMBO TIME 32.8 SECONDS (20.0-32.5)
[2022-01-13 13:53] LABS: INTERNATIONAL NORMALIZED RATIO 3.2 RATIO (0.7-1.3); PROTHROMBIN TIME 31.2 SECONDS (9.0-12.5)
[2022-01-13] MEDS ORDERED: NORVASC5 M1 PO (14:32)
[2022-01-13] MEDS ORDERED: ALLOPURINOL100 MG PO (14:32)
[2022-01-13] MEDS ORDERED: ASPIRIN81 MG PO (14:33)
[2022-01-13] MEDS ORDERED: DIGOXIN0.125 MG PO (14:34)
[2022-01-13] MEDS ORDERED: FUROSEMIDE20 MG PO (14:35)
[2022-01-13] MEDS ORDERED: ARICEPT PO (14:35)
[2022-01-13] MEDS ORDERED: ALTOPREV20 MG PO (14:36)
[2022-01-13] MEDS ORDERED: MEMANTINE HYDRO10 MG PO (14:37)
[2022-01-13] MEDS ORDERED: METOPROL TAR25 MG PO (14:39)
[2022-01-13] MEDS ORDERED: OMEPRAZOLE DR20 MG PO (14:40)
[2022-01-13] MEDS ORDERED: KLOR-CON M1010 MEQ PO (14:42)
[2022-01-13] MEDS ORDERED: WARFARIN3 MG PO (14:43)
[2022-01-13] MEDS ORDERED: PAIN RELIEF650 MG PO (14:44)
[2022-01-13] MEDS ORDERED: WARFARIN SODIUM1 MG PO (14:44)
[2022-01-13] MEDS ORDERED: MILK OF MAG30 ML/UDC PO (14:45)
[2022-01-13 14:48] LABS: URINE BILIRUBIN - DIPSTICK NEGATIVE (NEGATIVE); URINE BLOOD DIPSTICK LARGE (NEGATIVE); URINE COLOR YELLOW; URINE GLUCOSE - DIPSTICK >=1000 mg/dL (NEGATIVE); URINE KETONE NEGATIVE (NEGATIVE); URINE LEUK ESTERASE TRACE (NEGATIVE); URINE NITRITE - DIPSTICK POSITIVE (Negative); URINE PH 6.5 (4.5-8.0); URINE PROTEIN - DIPSTICK NEGATIVE (NEG-TRACE); URINE UROBILINOGEN - DIPSTICK 0.2 E.U./dL (0.2)
[2022-01-13 14:52] LABS: URINE BACTERIA MANY hpf; URINE RBC 25-50 RBC/hpf (0-5)
[2022-01-14 00:20] VITALS: BP 115/71
[2022-01-14 05:51] LABS: HEMATOCRIT 41.6 % (39.0-50.0); HEMOGLOBIN 12.7 g/dl (14.0-18.0); MEAN CELL VOLUME 93.7 fL CALC (80.0-100.0); MEAN CORPUSCULAR HGB 28.6 pG CALC (26.0-32.0); MEAN CORPUSCULAR HGB CONC 30.5 g/dL CAL (32.0-36.0); RED BLOOD COUNT 4.44 mill/uL (4.70-6.10); RED CELL DISTRI WIDTH 15.9 % (11.5-15.5)
[2022-01-14 06:25] LABS: ANION GAP 13 (6-22 (CALC)); BUN 13 mg/dL (8-23); BUN/CREATININE RATIO 16 (12-20 (CALC)); CARBON DIOXIDE 24 mmol/l (22-30); CHLORIDE 109 mmol/l (95-108); CREATININE 0.8 mg/dL (0.7-1.3); GFR FOR AFR.AMER. > 60 ML/MIN (>=60 (CALC)); GFR OTHER RACES > 60 ML/MIN (>=60 (CALC)); MAGNESIUM 1.6 mg/dL (1.6-2.3); POTASSIUM 3.5 mmol/l (3.5-5.1); SODIUM 142 mmol/l (137-146)
[2022-01-14 07:22] VITALS: BP 118/69
[2022-01-14 10:13] VITALS: BP 114/69
[2022-01-14 13:09] LABS: PROTHROMBIN TIME 22.5 SECONDS (9.0-12.5)
[2022-01-14 13:28] LABS: INTERNATIONAL NORMALIZED RATIO 2.3 RATIO (0.7-1.3)
[2022-01-14 14:23] VITALS: BP 125/69
[2022-01-14 18:45] VITALS: BP 119/79
[2022-01-15 00:26] VITALS: BP 129/73
[2022-01-15 04:35] VITALS: BP 121/80
[2022-01-15 05:59] LABS: HEMATOCRIT 43.1 % (39.0-50.0); HEMOGLOBIN 13.4 g/dl (14.0-18.0); MEAN CELL VOLUME 92.7 fL CALC (80.0-100.0); MEAN CORPUSCULAR HGB 28.8 pG CALC (26.0-32.0); MEAN CORPUSCULAR HGB CONC 31.1 g/dL CAL (32.0-36.0); RED BLOOD COUNT 4.65 mill/uL (4.70-6.10); RED CELL DISTRI WIDTH 15.8 % (11.5-15.5)
[2022-01-15 06:17] LABS: PROTHROMBIN TIME 15.8 SECONDS (9.0-12.5)
[2022-01-15 06:21] LABS: ANION GAP 11 (6-22 (CALC)); BUN 13 mg/dL (8-23); BUN/CREATININE RATIO 16 (12-20 (CALC)); CARBON DIOXIDE 27 mmol/l (22-30); CHLORIDE 107 mmol/l (95-108); CREATININE 0.8 mg/dL (0.7-1.3); GFR FOR AFR.AMER. > 60 ML/MIN (>=60 (CALC)); GFR OTHER RACES > 60 ML/MIN (>=60 (CALC)); MAGNESIUM 1.8 mg/dL (1.6-2.3); POTASSIUM 3.6 mmol/l (3.5-5.1); SODIUM 142 mmol/l (137-146)
[2022-01-15 06:33] VITALS: BP 121/80
[2022-01-15 06:40] LABS: INTERNATIONAL NORMALIZED RATIO 1.5 RATIO (0.7-1.3)
[2022-01-15 14:05] VITALS: BP 118/79
[2022-01-15 19:40] VITALS: BP 143/87
[2022-01-16] VITALS (8 sets, daily range): BP systolic 130–159; BP diastolic 61–89
[2022-01-16 06:36] LABS: HEMATOCRIT 40.5 % (39.0-50.0); HEMOGLOBIN 12.5 g/dl (14.0-18.0); MEAN CELL VOLUME 92.3 fL CALC (80.0-100.0); MEAN CORPUSCULAR HGB 28.5 pG CALC (26.0-32.0); MEAN CORPUSCULAR HGB CONC 30.9 g/dL CAL (32.0-36.0); RED BLOOD COUNT 4.39 mill/uL (4.70-6.10); RED CELL DISTRI WIDTH 15.7 % (11.5-15.5)
[2022-01-16 06:55] LABS: INTERNATIONAL NORMALIZED RATIO 1.2 RATIO (0.7-1.3); PROTHROMBIN TIME 12.5 SECONDS (9.0-12.5)
[2022-01-16 07:22] LABS: ANION GAP 9 (6-22 (CALC)); BUN 10 mg/dL (8-23); BUN/CREATININE RATIO 14 (12-20 (CALC)); CARBON DIOXIDE 27 mmol/l (22-30); CHLORIDE 106 mmol/l (95-108); CREATININE 0.8 mg/dL (0.7-1.3); GFR FOR AFR.AMER. > 60 ML/MIN (>=60 (CALC)); GFR OTHER RACES > 60 ML/MIN (>=60 (CALC)); POTASSIUM 2.9 mmol/l (3.5-5.1); SODIUM 139 mmol/l (137-146)
[2022-01-17 00:15] VITALS: BP 135/85
[2022-01-17 00:48] VITALS: BP 135/85
[2022-01-17 04:33] VITALS: BP 143/75
[2022-01-17 06:41] LABS: HEMOGLOBIN 12.5 g/dl (14.0-18.0); MEAN CELL VOLUME 92.4 fL CALC (80.0-100.0); MEAN CORPUSCULAR HGB 28.9 pG CALC (26.0-32.0); MEAN CORPUSCULAR HGB CONC 31.3 g/dL CAL (32.0-36.0); RED BLOOD COUNT 4.33 mill/uL (4.70-6.10); RED CELL DISTRI WIDTH 15.9 % (11.5-15.5)
[2022-01-17 06:48] LABS: INTERNATIONAL NORMALIZED RATIO 1.3 RATIO (0.7-1.3); PROTHROMBIN TIME 13.1 SECONDS (9.0-12.5)
[2022-01-17 06:54] LABS: ANION GAP 12 (6-22 (CALC)); BUN 10 mg/dL (8-23); BUN/CREATININE RATIO 13 (12-20 (CALC)); CARBON DIOXIDE 25 mmol/l (22-30); CHLORIDE 108 mmol/l (95-108); CREATININE 0.8 mg/dL (0.7-1.3); GFR FOR AFR.AMER. > 60 ML/MIN (>=60 (CALC)); GFR OTHER RACES > 60 ML/MIN (>=60 (CALC)); MAGNESIUM 1.7 mg/dL (1.6-2.3); POTASSIUM 3.4 mmol/l (3.5-5.1); SODIUM 141 mmol/l (137-146)
[2022-01-17 07:02] VITALS: BP 144/89
[2022-01-17 10:10] VITALS: BP 131/74
[2022-01-17 11:21] VITALS: BP 131/74
[2022-01-17] MEDS ORDERED: KEFLEX500 MG PO (12:10)
== END 2022-01-17 13:57 | disposition home health service (06) | DRG 871 ==
LOC: ED 12:42 → ED-I 13:50 → ED 15:03 → MS2 15:04
PROVIDERS: Internal Medicine; ADMIT Hospitalist; ATTEND Hospitalist
DX: A41.9 Sepsis, unspecified organism (principal); G93.41 Metabolic encephalopathy; N39.0 Urinary tract infection, site not specified; E87.2 Acidosis; R65.20 Severe sepsis without septic shock; I10 Essential (primary) hypertension; I48.91 Unspecified atrial fibrillation; I25.10 Atherosclerotic heart disease of native coronary artery without angina pectoris; E87.6 Hypokalemia; F03.90 Unspecified dementia, unspecified severity, without behavioral disturbance, psychotic disturbance, mood disturbance, and anxiety; B96.20 Unspecified Escherichia coli [E. coli] as the cause of diseases classified elsewhere; Z79.01 Long term (current) use of anticoagulants; Z95.5 Presence of coronary angioplasty implant and graft; Z20.822 Contact with and (suspected) exposure to COVID-19
CPT/HCPCS: J3370

== ENCOUNTER 2022-10-11 18:37 | Emergency (ER) | payer MEDICARE, BC ==
[2022-10-11] VITALS (18 sets, daily range): BP systolic 113–145; BP diastolic 73–97
[~2022-10-11] VITALS: Ht 167.6 cm; Wt 64.6 kg
[~2022-10-11 18:37] MED LIST changes: +ALLOPURINOL100 MG PO; +ALTOPREV20 MG PO; +ARICEPT PO; +ASPIRIN81 MG PO; +FUROSEMIDE20 MG PO; +KEFLEX500 MG PO; +KLOR-CON M1010 MEQ PO; +MEMANTINE HYDRO10 MG PO; +MILK OF MAG30 ML/UDC PO; +NORVASC5 M1 PO; +OMEPRAZOLE DR20 MG PO; +PAIN RELIEF650 MG PO; +WARFARIN SODIUM1 MG PO
[2022-10-11 20:07] LABS: BASO% 0.3 % (0-3); EOS% 0.2 % (0-8); HEMATOCRIT 48.3 % (39.0-50.0); HEMOGLOBIN 15.2 g/dl (14.0-18.0); IMMATURE GRANULOCYTES 0.5 % (0.0-5.0); LYMPH% 12.4 % (15-41); MEAN CELL VOLUME 90.3 fL CALC (80.0-100.0); MEAN CORPUSCULAR HGB 28.4 pG CALC (26.0-32.0); MEAN CORPUSCULAR HGB CONC 31.5 g/dL CAL (32.0-36.0); MONO% 11.7 % (2-13); NEUT# 8.31 thou/uL (1.82-7.42); NEUT% 74.9 % (42-76); RED BLOOD COUNT 5.35 mill/uL (4.70-6.10); RED CELL DISTRI WIDTH 14.2 % (11.5-15.5)
[2022-10-11 20:20] LABS: ALBUMIN 4.3 g/dL (3.2-5.0); ALKALINE PHOSPHATASE 120 u/l (38-126); ANION GAP 11 (6-22 (CALC)); BILIRUBIN, TOTAL 0.8 mg/dL (0.2-1.3); BUN 22 mg/dL (8-23); BUN/CREATININE RATIO 20 (12-20 (CALC)); CARBON DIOXIDE 31 mmol/l (22-30); CHLORIDE 99 mmol/l (95-108); CREATININE 1.1 mg/dL (0.7-1.3); GFR FOR AFR.AMER. > 60 ML/MIN (>=60 (CALC)); GFR OTHER RACES > 60 ML/MIN (>=60 (CALC)); POTASSIUM 4.1 mmol/l (3.5-5.1); SGOT/AST 31 u/l (19-48); SODIUM 137 mmol/l (137-146); TOTAL PROTEIN 7.9 g/dL (6.3-8.2)
[2022-10-11 23:32] LABS: URINE BILIRUBIN - DIPSTICK NEGATIVE (NEGATIVE); URINE BLOOD DIPSTICK SMALL (NEGATIVE); URINE COLOR YELLOW; URINE GLUCOSE - DIPSTICK 100 mg/dL (NEGATIVE); URINE KETONE TRACE mg/dL (NEGATIVE); URINE LEUK ESTERASE NEGATIVE (NEGATIVE); URINE PROTEIN - DIPSTICK 30 mg/dL (NEG-TRACE); URINE SPECIFIC GRAVITY 1.025; URINE UROBILINOGEN - DIPSTICK 0.2 E.U./dL (0.2)
[2022-10-11 23:37] LABS: URINE NITRITE - DIPSTICK NEGATIVE (Negative)
[2022-10-11 23:43] LABS: URINE MUCUS FEW hpf (NONE-FEW); URINE SQUAMOUS EPITHELIAL CELL FEW EPI/hpf (0-FEW); URINE WBC 0-2 WBC/hpf (0-5)
[2022-10-12] VITALS (40 sets, daily range): BP systolic 78–145; BP diastolic 54–101
== END 2022-10-12 11:34 ==
LOC: ED 18:37
PROVIDERS: Emergency Medicine
DX: Z04.3 Encounter for examination and observation following other accident (principal); F03.90 Unspecified dementia, unspecified severity, without behavioral disturbance, psychotic disturbance, mood disturbance, and anxiety; I10 Essential (primary) hypertension; I25.10 Atherosclerotic heart disease of native coronary artery without angina pectoris; I48.91 Unspecified atrial fibrillation; Z95.5 Presence of coronary angioplasty implant and graft

== ENCOUNTER 2023-01-13 12:37 | Emergency (ER) | payer MEDICARE, BC ==
[~2023-01-13] VITALS: Ht 167.6 cm; Wt 65.0 kg
[2023-01-13 12:43] VITALS: BP 133/75
[2023-01-13 13:18] VITALS: BP 133/75
== END 2023-01-13 13:30 | disposition home or self-care (01) ==
LOC: ED 12:37
DX: S80.211A Abrasion, right knee, initial encounter (principal); I10 Essential (primary) hypertension; I48.91 Unspecified atrial fibrillation; F03.90 Unspecified dementia, unspecified severity, without behavioral disturbance, psychotic disturbance, mood disturbance, and anxiety; W01.0XXA Fall on same level from slipping, tripping and stumbling without subsequent striking against object, initial encounter; Z95.5 Presence of coronary angioplasty implant and graft

== ENCOUNTER 2023-08-09 21:00 | Inpatient (IN) | payer MEDICARE, BC ==
[2023-08-09] VITALS (10 sets, daily range): BP systolic 95–136; BP diastolic 50–82
[~2023-08-09] VITALS: Ht 167.6 cm; Wt 76.0 kg
[2023-08-09 21:55] LABS: BASO% 0.2 % (0-3); EOS% 1.7 % (0-8); HEMATOCRIT 47.4 % (39.0-50.0); HEMOGLOBIN 14.5 g/dl (14.0-18.0); IMMATURE GRANULOCYTES 0.4 % (0.0-5.0); LYMPH% 10.4 % (15-41); MEAN CELL VOLUME 89.6 fL CALC (80.0-100.0); MEAN CORPUSCULAR HGB 27.4 pG CALC (26.0-32.0); MEAN CORPUSCULAR HGB CONC 30.6 g/dL CAL (32.0-36.0); MONO% 6.4 % (2-13); NEUT# 11.7 thou/uL (1.82-7.42); NEUT% 80.9 % (42-76); RED BLOOD COUNT 5.29 mill/uL (4.70-6.10); RED CELL DISTRI WIDTH 16.6 % (11.5-15.5)
[2023-08-09 22:05] LABS: ALBUMIN 4.1 g/dL (3.2-5.0); ALKALINE PHOSPHATASE 104 u/l (38-126); ANION GAP 11 (6-22 (CALC)); BILIRUBIN, TOTAL 0.7 mg/dL (0.2-1.3); BUN 26 mg/dL (8-23); BUN/CREATININE RATIO 25 (12-20 (CALC)); CARBON DIOXIDE 30 mmol/l (22-30); CHLORIDE 102 mmol/l (95-108); GFR FOR AFR.AMER. > 60 ML/MIN (>=60 (CALC)); GFR OTHER RACES > 60 ML/MIN (>=60 (CALC)); POTASSIUM 4.7 mmol/l (3.5-5.1); SGOT/AST 38 u/l (19-48); SODIUM 138 mmol/l (137-146)
[2023-08-09 22:10] LABS: INTERNATIONAL NORMALIZED RATIO 1.4 RATIO (0.7-1.3); PROTHROMBIN TIME 13.2 SECONDS (9.0-12.5)
[2023-08-09 23:42] LABS: URINE BILIRUBIN - DIPSTICK Negative (NEGATIVE); URINE BLOOD DIPSTICK Negative (NEGATIVE); URINE GLUCOSE - DIPSTICK 500 mg/dL (NEGATIVE); URINE KETONE Negative (NEGATIVE); URINE LEUK ESTERASE Negative (NEGATIVE); URINE NITRITE - DIPSTICK Negative (Negative); URINE PH 7.5 (4.5-8.0); URINE PROTEIN - DIPSTICK Negative (NEG-TRACE); URINE SPECIFIC GRAVITY 1.015; URINE UROBILINOGEN - DIPSTICK 0.2 E.U./dL (0.2)
[2023-08-09 23:46] LABS: URINE COLOR Yellow
[2023-08-10] VITALS (12 sets, daily range): BP systolic 107–132; BP diastolic 66–103
[2023-08-10 05:30] LABS: BASO% 0.1 % (0-3); EOS% 0.8 % (0-8); HEMATOCRIT 44.5 % (39.0-50.0); HEMOGLOBIN 13.9 g/dl (14.0-18.0); IMMATURE GRANULOCYTES 0.2 % (0.0-5.0); LYMPH% 14.8 % (15-41); MEAN CELL VOLUME 90.8 fL CALC (80.0-100.0); MEAN CORPUSCULAR HGB 28.4 pG CALC (26.0-32.0); MEAN CORPUSCULAR HGB CONC 31.2 g/dL CAL (32.0-36.0); MONO% 6.7 % (2-13); NEUT# 12.87 thou/uL (1.82-7.42); NEUT% 77.4 % (42-76); RED BLOOD COUNT 4.9 mill/uL (4.70-6.10); RED CELL DISTRI WIDTH 16.8 % (11.5-15.5)
[2023-08-10 05:47] LABS: ALBUMIN 3.5 g/dL (3.2-5.0); ALKALINE PHOSPHATASE 84 u/l (38-126); ANION GAP 12 (6-22 (CALC)); BILIRUBIN, TOTAL 0.7 mg/dL (0.2-1.3); BUN 22 mg/dL (8-23); BUN/CREATININE RATIO 25 (12-20 (CALC)); CARBON DIOXIDE 25 mmol/l (22-30); CHLORIDE 108 mmol/l (95-108); CREATININE 0.9 mg/dL (0.7-1.3); GFR FOR AFR.AMER. > 60 ML/MIN (>=60 (CALC)); GFR OTHER RACES > 60 ML/MIN (>=60 (CALC)); MAGNESIUM 2.1 mg/dL (1.6-2.3); SGOT/AST 43 u/l (19-48); SODIUM 141 mmol/l (137-146); TOTAL PROTEIN 6.3 g/dL (6.3-8.2)
[2023-08-10 11:02] LABS: ANION GAP 11 (6-22 (CALC)); BUN 20 mg/dL (8-23); BUN/CREATININE RATIO 23 (12-20 (CALC)); CARBON DIOXIDE 28 mmol/l (22-30); CHLORIDE 107 mmol/l (95-108); CREATININE 0.9 mg/dL (0.7-1.3); GFR FOR AFR.AMER. > 60 ML/MIN (>=60 (CALC)); GFR OTHER RACES > 60 ML/MIN (>=60 (CALC)); POTASSIUM 4.1 mmol/l (3.5-5.1); SODIUM 141 mmol/l (137-146)
[2023-08-11] VITALS (14 sets, daily range): BP systolic 112–141; BP diastolic 67–104
[2023-08-11 06:42] LABS: BASO% 0.2 % (0-3); EOS% 1.7 % (0-8); HEMATOCRIT 43.9 % (39.0-50.0); HEMOGLOBIN 13.6 g/dl (14.0-18.0); IMMATURE GRANULOCYTES 0.4 % (0.0-5.0); MEAN CELL VOLUME 90.9 fL CALC (80.0-100.0); MEAN CORPUSCULAR HGB 28.2 pG CALC (26.0-32.0); MONO% 9.8 % (2-13); NEUT# 7.25 thou/uL (1.82-7.42); NEUT% 63.9 % (42-76); RED BLOOD COUNT 4.83 mill/uL (4.70-6.10); RED CELL DISTRI WIDTH 17.1 % (11.5-15.5)
[2023-08-11 07:07] LABS: ALBUMIN 3.3 g/dL (3.2-5.0); ALKALINE PHOSPHATASE 92 u/l (38-126); ANION GAP 12 (6-22 (CALC)); BILIRUBIN, TOTAL 0.9 mg/dL (0.2-1.3); BUN 18 mg/dL (8-23); BUN/CREATININE RATIO 20 (12-20 (CALC)); CARBON DIOXIDE 27 mmol/l (22-30); CHLORIDE 109 mmol/l (95-108); CREATININE 0.9 mg/dL (0.7-1.3); GFR FOR AFR.AMER. > 60 ML/MIN (>=60 (CALC)); GFR OTHER RACES > 60 ML/MIN (>=60 (CALC)); MAGNESIUM 2.2 mg/dL (1.6-2.3); POTASSIUM 4.2 mmol/l (3.5-5.1); SGOT/AST 34 u/l (19-48); SODIUM 144 mmol/l (137-146); TOTAL PROTEIN 6.2 g/dL (6.3-8.2)
[2023-08-11] MEDS ORDERED: JARDIANCE25 MG PO (12:41)
[2023-08-11] MEDS ORDERED: JANUVIA50 MG PO (12:41)
[2023-08-11] MEDS ORDERED: JANTOVEN3 MG PO (12:42)
[2023-08-12] VITALS (24 sets, daily range): BP systolic 104–135; BP diastolic 64–90
[2023-08-12 06:49] LABS: BASO% 0.2 % (0-3); EOS% 2.8 % (0-8); HEMATOCRIT 46.3 % (39.0-50.0); HEMOGLOBIN 14.1 g/dl (14.0-18.0); IMMATURE GRANULOCYTES 0.9 % (0.0-5.0); MEAN CELL VOLUME 90.4 fL CALC (80.0-100.0); MEAN CORPUSCULAR HGB 27.5 pG CALC (26.0-32.0); MEAN CORPUSCULAR HGB CONC 30.5 g/dL CAL (32.0-36.0); MONO% 10.3 % (2-13); NEUT# 5.63 thou/uL (1.82-7.42); NEUT% 66.8 % (42-76); RED BLOOD COUNT 5.12 mill/uL (4.70-6.10); RED CELL DISTRI WIDTH 16.9 % (11.5-15.5)
[2023-08-12 07:09] LABS: INTERNATIONAL NORMALIZED RATIO 1.3 RATIO (0.7-1.3); PROTHROMBIN TIME 12.3 SECONDS (9.0-12.5)
[2023-08-12 07:18] LABS: ALBUMIN 3.2 g/dL (3.2-5.0); ALKALINE PHOSPHATASE 90 u/l (38-126); ANION GAP 10 (6-22 (CALC)); BILIRUBIN, TOTAL 0.8 mg/dL (0.2-1.3); BUN 14 mg/dL (8-23); BUN/CREATININE RATIO 19 (12-20 (CALC)); CARBON DIOXIDE 26 mmol/l (22-30); CHLORIDE 106 mmol/l (95-108); CREATININE 0.8 mg/dL (0.7-1.3); GFR FOR AFR.AMER. > 60 ML/MIN (>=60 (CALC)); GFR OTHER RACES > 60 ML/MIN (>=60 (CALC)); MAGNESIUM 2.1 mg/dL (1.6-2.3); SGOT/AST 30 u/l (19-48); SODIUM 139 mmol/l (137-146); TOTAL PROTEIN 6.4 g/dL (6.3-8.2)
[2023-08-12 07:19] LABS: POTASSIUM 3.2 mmol/l (3.5-5.1)
[2023-08-13] VITALS (12 sets, daily range): BP systolic 29–142; BP diastolic 13–97
[2023-08-13 06:50] LABS: BASO% 0.2 % (0-3); HEMATOCRIT 46.7 % (39.0-50.0); HEMOGLOBIN 14.5 g/dl (14.0-18.0); IMMATURE GRANULOCYTES 0.7 % (0.0-5.0); MEAN CELL VOLUME 89.6 fL CALC (80.0-100.0); MEAN CORPUSCULAR HGB 27.8 pG CALC (26.0-32.0); MONO% 10.1 % (2-13); NEUT# 6.08 thou/uL (1.82-7.42); RED BLOOD COUNT 5.21 mill/uL (4.70-6.10); RED CELL DISTRI WIDTH 16.7 % (11.5-15.5)
[2023-08-13 07:04] LABS: ALBUMIN 3.3 g/dL (3.2-5.0); ALKALINE PHOSPHATASE 92 u/l (38-126); ANION GAP 10 (6-22 (CALC)); BILIRUBIN, TOTAL 0.7 mg/dL (0.2-1.3); BUN 15 mg/dL (8-23); BUN/CREATININE RATIO 18 (12-20 (CALC)); CARBON DIOXIDE 27 mmol/l (22-30); CHLORIDE 106 mmol/l (95-108); CREATININE 0.8 mg/dL (0.7-1.3); GFR FOR AFR.AMER. > 60 ML/MIN (>=60 (CALC)); GFR OTHER RACES > 60 ML/MIN (>=60 (CALC)); MAGNESIUM 1.8 mg/dL (1.6-2.3); SGOT/AST 32 u/l (19-48); SODIUM 139 mmol/l (137-146); TOTAL PROTEIN 6.3 g/dL (6.3-8.2)
[2023-08-13 08:28] LABS: INTERNATIONAL NORMALIZED RATIO 1.3 RATIO (0.7-1.3); PROTHROMBIN TIME 12.1 SECONDS (9.0-12.5)
[2023-08-13] MEDS ORDERED: AMOX/K CLAV875 M1 PO (14:08)
== END 2023-08-13 14:30 | DRG 193 ==
LOC: ED 21:00 → ED-I 23:40 → ED 23:59 → ICU 08-10
PROVIDERS: Family Medicine; Student in an Organized Health Care Education/Training Program; ADMIT Student in an Organized Health Care Education/Training Program; ATTEND Student in an Organized Health Care Education/Training Program
DX: J18.9 Pneumonia, unspecified organism (principal); G93.41 Metabolic encephalopathy; R09.02 Hypoxemia; I10 Essential (primary) hypertension; I25.10 Atherosclerotic heart disease of native coronary artery without angina pectoris; I48.0 Paroxysmal atrial fibrillation; G20.C Parkinsonism, unspecified; F02.B0 Dementia in other diseases classified elsewhere, moderate, without behavioral disturbance, psychotic disturbance, mood disturbance, and anxiety; Z79.01 Long term (current) use of anticoagulants; Z95.5 Presence of coronary angioplasty implant and graft; Z20.822 Contact with and (suspected) exposure to COVID-19
CPT/HCPCS: J1650

== ENCOUNTER 2024-01-18 16:39 | Inpatient (IN) | payer MEDICARE, BC ==
[~2024-01-18] VITALS: Ht 167.6 cm; Wt 65.8 kg
[~2024-01-18 16:39] MED LIST changes: +AMOX/K CLAV875 M1 PO; +JANTOVEN3 MG PO; +JANUVIA50 MG PO; +JARDIANCE25 MG PO
--- NOTE | 2024-01-18 16:40 | NUR ---
PT BROUGHT BACK TO ER ROOM 10 VIA EMS
[2024-01-18 16:49] VITALS: BP 144/79
[2024-01-18] MEDS ORDERED: AZITHROMYCIN 500 MG in SODIUM CHLORIDE 0.9% 250 ML IV STA (16:49)
[2024-01-18] MEDS ORDERED: SODIUM CHLORIDE 0.9% 1,000 ML BAG IV ONE (16:50)
[2024-01-18] MEDS ORDERED: ACETAMINOPHEN 500 MG TAB PO ONE (16:55)
[2024-01-18 17:00] VITALS: BP 136/75
--- NOTE | 2024-01-18 17:15 | NUR ---
MULTIPLE ATTEMPTS MADE TO OBTAIN IV ACCESS, UNSUCCESSFUL, PT RESTING IN BED, VSS, CALL LIGHT WITHIN REACH
[2024-01-18 17:23] LABS: BASO% 0.1 % (0-3); EOS% 0.4 % (0-8); HEMATOCRIT 47.7 % (39.0-50.0); HEMOGLOBIN 14.9 g/dl (14.0-18.0); IMMATURE GRANULOCYTES 0.3 % (0.0-5.0); LYMPH% 7.5 % (15-41); MEAN CELL VOLUME 86.6 fL CALC (80.0-100.0); MEAN CORPUSCULAR HGB CONC 31.2 g/dL CAL (32.0-36.0); MONO% 5.4 % (2-13); NEUT# 14.72 thou/uL (1.82-7.42); NEUT% 86.3 % (42-76); RED BLOOD COUNT 5.51 mill/uL (4.70-6.10)
[2024-01-18 17:30] VITALS: BP 128/109
[2024-01-18 17:36] LABS: ALKALINE PHOSPHATASE 108 u/l (38-126); ANION GAP 9 (6-22 (CALC)); BILIRUBIN, TOTAL 0.5 mg/dL (0.2-1.3); BUN 24 mg/dL (8-23); BUN/CREATININE RATIO 21 (12-20 (CALC)); CARBON DIOXIDE 27 mmol/l (22-30); CHLORIDE 107 mmol/l (95-108); CREATININE 1.1 mg/dL (0.7-1.3); ESTIMATED GFR 65 ML/MIN (>=90 (CALC)); POTASSIUM 4.1 mmol/l (3.5-5.1); SGOT/AST 27 u/l (19-48); SODIUM 138 mmol/l (137-146)
[2024-01-18 17:43] LABS: ACT PARTIAL THROMBO TIME 28.6 SECONDS (20.0-32.5)
--- NOTE | 2024-01-18 17:45 | NUR ---
Reassessment of patient completed. No distress noted. PT RESTING IN BED, VSS, CALL LIGHT WITHIN REACH
[2024-01-18 17:52] LABS: PROTHROMBIN TIME 18.3 SECONDS (9.0-12.5)
[2024-01-18 18:32] LABS: URINE BILIRUBIN - DIPSTICK Negative (NEGATIVE); URINE BLOOD DIPSTICK Trace-lysed (NEGATIVE); URINE COLOR Yellow; URINE GLUCOSE - DIPSTICK >=1000 mg/dL (NEGATIVE); URINE KETONE Negative (NEGATIVE); URINE LEUK ESTERASE Negative (NEGATIVE); URINE NITRITE - DIPSTICK Negative (Negative); URINE PH 6.5 (4.5-8.0); URINE PROTEIN - DIPSTICK Negative (NEG-TRACE); URINE SPECIFIC GRAVITY 1.015; URINE UROBILINOGEN - DIPSTICK 0.2 E.U./dL (0.2)
--- NOTE | 2024-01-18 19:09 | NUR ---
TRANSFER OF CARE REPORT CALLED TO [facility], SPOKE WITH JENY Macedo. GAVE PT INFO PT TO BE TRANSPORTED TO [facility] BED 270
[2024-01-18 19:30] VITALS: BP 118/75
[2024-01-18 20:00] VITALS: BP 133/86
--- NOTE | 2024-01-18 20:10 | NUR ---
PT ARRIVED TO [facility] ONLY ALERT TO SELF NAME DOES NOT KNOW HIS BIRTHDAY. PT HAS DEMENTIA. IV FLUIDS BOLUS RESTARTED ON HIS LEFT HAND IV 24G AND ABX STARTED. PT ON NC 2L OXYGEN ON RA HIS O2 WAS READING 90%. PT HEART MONITOR SHOWING AFIB STABLE. NO PAIN REPORTED AT THIS TIME. TRACE EDEMA ON HIS GIACOMO ANKLES. PT'S ANUS HAS SOME REDNESS WITH STOOL. PT WAS CLEANED UP AND REPOSITIONED. BED ALARM WATER QUALITY CONTROL ENGINEER LIGHT WITHIN REACH. PT STATED UNDERSTANDING ON HOW TO USE IT. PLAN OF CARE ONGOING.
--- NOTE | 2024-01-18 20:15 | NUR ---
PT TRANSPORTED VIA CART TO ROOM 270. TRANSFERRED CARE OF PT.
[2024-01-18 20:31] VITALS: BP 136/79
[2024-01-18] MEDS ORDERED: ACETAMINOPHEN 325 MG/TAB PO PRN (21:20)
[2024-01-18] MEDS ORDERED: MAGNESIUM HYDROXIDE 30 ML UDC PO PRN (21:20)
[2024-01-18] MEDS ORDERED: SODIUM CHLORIDE 0.9% 1,000 ML IV PRN (21:20)
[2024-01-19] VITALS (10 sets, daily range): BP systolic 121–143; BP diastolic 69–79
--- NOTE | 2024-01-19 | NUR ---
PT CONTINUES TO GET OUT OF BED WITHOUT ASSITANCE. MULTIPLE TIMES ALMOST FALLING. PT PULLED OUT IV ON HIS LEFT HAND. PRINTER TECHNICIAN INFORMED OF SITUATION. BED ALARM ON. CALL LIGHT WITHIN REACH. PLAN OF CARE ONGOING.
--- NOTE | 2024-01-19 04:11 | NUR ---
PT IS SLEEPING BUT AT TIMES STILL TRYING TO GET UP IV SITE CHECKED WORKING PROPERLY. BED ALARM ADMINISTRATION MANAGER LIGHT WITHIN REACH. PLAN OF CARE ONGOING.
[2024-01-19 06:37] LABS: HEMATOCRIT 42.6 % (39.0-50.0); HEMOGLOBIN 13.3 g/dl (14.0-18.0); MEAN CELL VOLUME 88.4 fL CALC (80.0-100.0); MEAN CORPUSCULAR HGB 27.6 pG CALC (26.0-32.0); MEAN CORPUSCULAR HGB CONC 31.2 g/dL CAL (32.0-36.0); RED BLOOD COUNT 4.82 mill/uL (4.70-6.10); RED CELL DISTRI WIDTH 17.8 % (11.5-15.5)
[2024-01-19 06:44] LABS: CREATININE 0.9 mg/dL (0.7-1.3); POTASSIUM 3.7 mmol/l (3.5-5.1)
[2024-01-19 06:45] LABS: ALBUMIN 3.1 g/dL (3.2-5.0); TOTAL PROTEIN 6.1 g/dL (6.3-8.2)
--- NOTE | 2024-01-19 07:34 | NUR ---
PT IS SLEEPING COMFORTABLY AT THIS TIME. RESPIRATIONS ARE EVEN AND UNLABORED ON 2L O2. SITTER AT BEDSIDE.
--- NOTE | 2024-01-19 08:13 | NUR ---
MD AT BEDSIDE WITH PT AT THIS TIME.
[2024-01-19] MEDS ORDERED: DEXTROSE 250 ML IV PRN (09:45)
[2024-01-19] MEDS ORDERED: METOPROLOL TARTRATE 25 MG/TAB PO SCH (11:00)
[2024-01-19] MEDS ORDERED: DIGOXIN 0.125 MG/TAB PO SCH (11:00)
[2024-01-19] MEDS ORDERED: ASPIRIN 81 MG/TAB PO SCH (11:00)
[2024-01-19] MEDS ORDERED: PANTOPRAZOLE SODIUM Sesquihydr 40 MG/TAB PO SCH (11:00)
[2024-01-19] MEDS ORDERED: FUROSEMIDE 20 MG/TAB PO SCH (11:00)
[2024-01-19] MEDS ORDERED: INSULIN LISPRO 100 UNITS/ML ML SC SCH (11:00)
--- NOTE | 2024-01-19 16:23 | NUR ---
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 sitter at bedside.
[2024-01-19] MEDS ORDERED: AZITHROMYCIN 500 MG in SODIUM CHLORIDE 0.9% 250 ML IV SCH (17:00)
--- NOTE | 2024-01-19 18:23 | NUR ---
IV DISLODGED, 3RN NURSE ATTEMPTING TO GAIN IV ACCESS AT THIS TME.
--- NOTE | 2024-01-19 20:00 | NUR ---
BEDSIDE SHIFT REPORT COMPLETED. SITTER AT BEDSIDE DUE TO FALL RISK AND DISLODGING OF MEDICAL LINES. NO S/S OF PAIN OR DISCOMFORT NOTED.
[2024-01-19] MEDS ORDERED: ENOXAPARIN SODIUM 40 MG/0.4 ML SYR SC SCH (21:00)
[2024-01-20] VITALS (8 sets, daily range): BP systolic 121–151; BP diastolic 69–89
--- NOTE | 2024-01-20 | NUR ---
TURNED AND INCONT CARE PROVIDED NEEDED. SITTER AT BEDSIDE.
[2024-01-20 05:58] LABS: HEMATOCRIT 44.1 % (39.0-50.0); HEMOGLOBIN 13.7 g/dl (14.0-18.0); MEAN CELL VOLUME 87.5 fL CALC (80.0-100.0); MEAN CORPUSCULAR HGB 27.2 pG CALC (26.0-32.0); MEAN CORPUSCULAR HGB CONC 31.1 g/dL CAL (32.0-36.0); RED BLOOD COUNT 5.04 mill/uL (4.70-6.10); RED CELL DISTRI WIDTH 17.8 % (11.5-15.5)
[2024-01-20 06:16] LABS: ALBUMIN 3.1 g/dL (3.2-5.0); BILIRUBIN, TOTAL 0.8 mg/dL (0.2-1.3); CREATININE 0.8 mg/dL (0.7-1.3); MAGNESIUM 1.9 mg/dL (1.6-2.3); POTASSIUM 3.3 mmol/l (3.5-5.1); TOTAL PROTEIN 6.1 g/dL (6.3-8.2)
--- NOTE | 2024-01-20 08:00 | NUR ---
AWAKE, ALERT AND ORIENTED TO SELF AND PERSON ONLY, NO C/O DISCOMFORT, SET FOR MEAL AND FEEDS SELF WITH SUPERVISION.
--- NOTE | 2024-01-20 08:02 | NUR ---
SHIFT CHANGE REPORT, PT SLEEPING SOUNDLY IN SUPINE POSITION, O2 @ 2L VIA NC IN PLACE, IVF INFUSING, TELE MONITOR IN PLACE, CALL DAWSON IN REACH, SITTER IN ROOM, BED LOCKED IN LOWEST POSITION.
[2024-01-20] MEDS ORDERED: POTASSIUM CHLORIDE 20 MEQ/TAB PO SCH (09:00)
[2024-01-20 09:15] LABS: INTERNATIONAL NORMALIZED RATIO 1.2 RATIO (0.7-1.3); PROTHROMBIN TIME 11.6 SECONDS (9.0-12.5)
--- NOTE | 2024-01-20 13:23 | NUR ---
STABLE CONDITION, NO NEW COMPLAINS OR CHANGE IN CONDITION, SITTER IN ROOM.
[2024-01-20] MEDS ORDERED: warFARIN SODIUM 3 MG/TAB PO SCH (14:00)
--- NOTE | 2024-01-20 16:52 | NUR ---
RELAXING IN BED, PLEASANT DEMEANOR, STABLE CONDITION.
[2024-01-21 00:28] VITALS: BP 134/82
[2024-01-21 04:48] LABS: BASO% 0.2 % (0-3); EOS% 2.7 % (0-8); HEMATOCRIT 45.7 % (39.0-50.0); IMMATURE GRANULOCYTES 1.7 % (0.0-5.0); LYMPH% 16.5 % (15-41); MEAN CELL VOLUME 88.6 fL CALC (80.0-100.0); MEAN CORPUSCULAR HGB 27.1 pG CALC (26.0-32.0); MEAN CORPUSCULAR HGB CONC 30.6 g/dL CAL (32.0-36.0); NEUT# 7.84 thou/uL (1.82-7.42); NEUT% 71.9 % (42-76); RED BLOOD COUNT 5.16 mill/uL (4.70-6.10); RED CELL DISTRI WIDTH 18.1 % (11.5-15.5)
[2024-01-21 05:01] LABS: INTERNATIONAL NORMALIZED RATIO 1.1 RATIO (0.7-1.3)
[2024-01-21 05:02] LABS: ALBUMIN 2.9 g/dL (3.2-5.0); BILIRUBIN, TOTAL 0.5 mg/dL (0.2-1.3); CREATININE 1.1 mg/dL (0.7-1.3); MAGNESIUM 1.9 mg/dL (1.6-2.3); POTASSIUM 3.7 mmol/l (3.5-5.1)
[2024-01-21 05:12] VITALS: BP 133/81
[2024-01-21 05:46] LABS: PROTHROMBIN TIME 10.6 SECONDS (9.0-12.5)
[2024-01-21 07:59] VITALS: BP 141/84
--- NOTE | 2024-01-21 08:00 | NUR ---
PT SITTING UP IN CHAIR WITH SITTER IN RM. PT IS ALERT AND CONFUSED, EATING BREAKFAST. PT HAS NO C/O PAIN AT THIS TIME. PT CONTINUES ON O2 @ 2 LITERS. PT IV SITE TO LFA CLEAN AND INTACT NS@ 20 ML/HR. PT IS WEARING A BREIF FOR INCONTINENCE. PT HAS CALL LIGHT WITHIN REACH AND SAFETY MEASURES IN PLACE AT THIS ITME.
[2024-01-21 10:56] VITALS: BP 131/81
[2024-01-21] MEDS ORDERED: OMNICEF300 MG PO (11:09)
--- NOTE | 2024-01-21 12:00 | NUR ---
PT SITTING UP IN CHAIR EATING LUNCH, SITTER IN ROOM. PT HAS NOT HAD BM IN 3 DAYS, MOM GIVEN ORDERED. PT HAS CALL LIGHT WITHIN REACH AND SAFETY MEASURES IN PLACE.
[2024-01-21] MEDS ORDERED: warFARIN SODIUM 5 MG/TAB PO SCH (14:00)
--- NOTE | 2024-01-21 14:30 | NUR ---
PT HAS LARGE BM. PROVIDER AWARE. PT HAS CALL LIGHT WITHIN REACH.
[2024-01-21] MEDS ORDERED: LACTULOSE 20 GM/30 ML UDC PO SCH (15:00)
[2024-01-21] MEDS ORDERED: BISACODYL 10 MG SUPP PR SCH (15:00)
--- NOTE | 2024-01-21 16:00 | NUR ---
PT IN BED , SITTER AT BEDSIDE. PT HAS NO C/O PAIN. PT HAS CALL LIGHT WITHIN REACH AND SAFETY MEASURES IN PLACE AT THIS TIME.
[2024-01-21 16:06] VITALS: BP 143/81
--- NOTE | 2024-01-21 17:16 | NUR ---
Discharge instructions given. Patient verbalizes understanding of same. Discharged in stable condition via [facility] with *Other. All belongings sent with pt.
== END 2024-01-21 17:18 | DRG 871 ==
LOC: ED 16:39 → ED-I 18:21 → ED 18:34 → MS2 18:35
PROVIDERS: Emergency Medicine; Nurse Practitioner Family; ADMIT Internal Medicine; ATTEND Internal Medicine
DX: A41.9 Sepsis, unspecified organism (principal); J18.9 Pneumonia, unspecified organism; J96.01 Acute respiratory failure with hypoxia; I48.19 Other persistent atrial fibrillation; R65.20 Severe sepsis without septic shock; G30.1 Alzheimer's disease with late onset; F02.C0 Dementia in other diseases classified elsewhere, severe, without behavioral disturbance, psychotic disturbance, mood disturbance, and anxiety; I10 Essential (primary) hypertension; E11.9 Type 2 diabetes mellitus without complications; N40.0 Benign prostatic hyperplasia without lower urinary tract symptoms; R15.9 Full incontinence of feces; Z95.5 Presence of coronary angioplasty implant and graft; Z79.84 Long term (current) use of oral hypoglycemic drugs; Z79.01 Long term (current) use of anticoagulants